=== PATIENT | female | born 1975 | race Caucasian/White ===

== ENCOUNTER → 2018-02-07 | Outpatient (CLI) | payer BC ==
[~2018-02-07] MED LIST: HYOS1TAB PO; ONDA4TAB7 SL
[2018-02-07 08:19] LABS: FOLLICLE STIMULAT HORMONE 8.15 IU/L; LUTEINIZING HORMONE 3.64 IU/L
== END | disposition home or self-care (01) ==
LOC: C.LAB 07:16
PROVIDERS: ATTEND Obstetrics & Gynecology Reproductive Endocrinology
DX: N97.9 Female infertility, unspecified (principal)

== ENCOUNTER → 2018-02-23 | Outpatient (CLI) | payer BC | END | disposition home or self-care (01) | LOC: C.LAB 12:28 | PROVIDERS: ATTEND Obstetrics & Gynecology Reproductive Endocrinology | DX: N97.9 Female infertility, unspecified (principal) ==